=== PATIENT | male | born 1940 | race Caucasian/White ===

== ENCOUNTER 2021-07-02 00:35 | Day surgery (SDC) | payer OTHER, SELFPAY ==
[2021-06-17 14:37] VITALS: BMI 31.8
--- NOTE | 2021-07-01 15:26 | PM.HPGS ---
History of Present Illness History of Present Illness Consent: Risks, benefits, and alternatives have been discussed and questions answered. Patient agrees to proceed with procedure. Chief complaint: occult gi bleed: JOSE Narrative: Ghulam Newsome is a 81 year old male Was been found to be anemic. Hemoglobin was 14.1 last year, and now it is 12.9. Review of Systems Review of Systems: All systems reviewed & are unremarkable except as noted in HPI and below PMFSH Past Medical History Medical History BPH loc w/o ur obs/LUTS Chronic kidney disease, stage 3 (moderate) Depression Essential (primary) hypertension Hypertension Male erectile dysfunction, unspecified MCI (mild cognitive impairment) with memory loss Mixed hyperlipidemia Obstructive sleep apnea Peripheral polyneuropathy Restless legs syndrome Family History Family History Father Acute myocardial infarction Mother Acute myocardial infarction Other Diabetes mellitus Social History Social History Smoking packs per day: 1 Smoking cigarettes per day: 20.0 Years smoked: 30 Smoking pack-years: 30.00 Smoking status: Former smoker Tobacco type: cigarettes, pipe and cigars Second hand tobacco smoke exposure: No Smoking end date: 02/15/84 Alcohol intake: current Drinks per week: 2 Alcohol use details: 4 drinks per month Substance use: never Substance use type: does not use Living arrangements: with family Gender identity (if verbalized by the patient): Male Spiritual care concerns: No Agree to blood products: Yes Meds Home Medications and Allergies Home Medications Medication Instructions Recorded Confirmed Type aspirin 81 mg tablet,delayed 81 mg PO DAILY #1 tablet 01/03/19 07/02/21 Rx release xshxarsfgwcr-epecfzdb-nhmdis tablet 1 tablet PO DAILY 07/15/20 07/02/21 History ferrous sulfate 325 mg (65 mg 325 mg PO DAILY #90 tablet 06/15/21 07/02/21 Rx iron) tablet omeprazole 40 mg capsule,delayed 40 mg PO DAILY #90 cap 06/15/21 07/02/21 Rx release donepezil 10 mg PO DAILY 06/17/21 07/02/21 History irbesartan 75 mg PO DAILY 06/17/21 07/02/21 History sertraline 50 mg PO DAILY 06/17/21 07/02/21 History tamsulosin 0.4 mg PO DAILY 06/17/21 07/02/21 History Allergies Allergy/AdvReac Type Severity Reaction Status Date / Time No Known Allergies Allergy Verified 07/02/21 11:05 Exam Const: General: alert Orientation/consciousness: patient oriented x3 Resp: Auscultation: clear to auscultation bilaterally Cardio: Rhythm: regular rhythm GI: GI Palp: Yes Soft to palpation and No Tenderness to palpation present (GI) Neuro: General: patient oriented x3 Assessment and Plan Assessment and plan (1) Anemia: Code(s): D64.9 - Anemia, unspecified Status: Acute Assessment and Plan: Colonoscopy with possible biopsy or polypectomy or cautery or injection of substances. EGD with possible biopsy or dilatation or cautery.
--- NOTE | 2021-07-02 09:01 | WPDANESEPPF ---
Anes - Initial Pre Proc Eval Procedure: Operation Date: 07/02/21 12:30 Proposed Procedures p Esophagogastroduodenoscopy & Colonoscopy - Herb Ellis MD Date/Time: 07/02/21 09:01 Surgeon: Herb Ellis MD Pre Op Diagnosis: occult gi bleed: JOSE Patient Data Age: 81 Gender: M Height: 1.75 m Weight: 97.7 kg Allergies Allergy/AdvReac Type Severity Reaction Status Date / Time No Known Allergies Allergy Verified 07/02/21 11:05 Home Medications Medication Instructions Recorded Confirmed Type aspirin 81 mg tablet,delayed 81 mg PO DAILY #1 tablet 01/03/19 07/02/21 Rx release pmvxtglxknie-cfripiey-mtcyxp tablet 1 tablet PO DAILY 07/15/20 07/02/21 History ferrous sulfate 325 mg (65 mg 325 mg PO DAILY #90 tablet 06/15/21 07/02/21 Rx iron) tablet omeprazole 40 mg capsule,delayed 40 mg PO DAILY #90 cap 06/15/21 07/02/21 Rx release donepezil 10 mg PO DAILY 06/17/21 07/02/21 History irbesartan 75 mg PO DAILY 06/17/21 07/02/21 History sertraline 50 mg PO DAILY 06/17/21 07/02/21 History tamsulosin 0.4 mg PO DAILY 06/17/21 07/02/21 History Patient hx anesthesia problems: none Family hx anesthesia problems: none Results Review: All pre-operative results and documents have been reviewed as part of the pre-operative evaluation. [facility] Past Medical History Medical History BPH loc w/o ur obs/LUTS Chronic kidney disease, stage 3 (moderate) Depression Essential (primary) hypertension Hypertension Male erectile dysfunction, unspecified MCI (mild cognitive impairment) with memory loss Mixed hyperlipidemia Obstructive sleep apnea Peripheral polyneuropathy Restless legs syndrome Family History Family History Father Acute myocardial infarction Mother Acute myocardial infarction Other Diabetes mellitus Social History Social History Smoking packs per day: 1 Smoking cigarettes per day: 20.0 Years smoked: 30 Smoking pack-years: 30.00 Smoking status: Former smoker Tobacco type: cigarettes, pipe and cigars Second hand tobacco smoke exposure: No Smoking end date: 02/15/84 Alcohol intake: current Drinks per week: 2 Alcohol use details: 4 drinks per month Substance use: never Substance use type: does not use Living arrangements: with family Gender identity (if verbalized by the patient): Male Spiritual care concerns: No Agree to blood products: Yes Anes - Eval Final PreProcedure Day of Procedure 07/02/21 09:01 Patient weight: obese Heart: regular rate and rhythm Lungs: clear to auscultation and normal air movement Airway: Mallampati scale class II Neurological: alert and oriented Last oral intake: >/= 8 hours ASA classification: III Emergent: no Anesthetic plan: proceed Anesthesia type and monitoring: general GIVS Results Review: All pre-operative results and documents have been reviewed as part of the pre-operative evaluation. Informed Consent: The patient's anesthetic plan and its attendant risks and benefits were discussed with the patient/family/POA. Questions were solicited and answers provided to the satisfaction of the patient/family/POA.
[2021-07-02 10:55] VITALS: BP 172/72; PULSE 67; RESP 18; TEMP 36.4; O2SAT 99; BMI 29.0
[2021-07-02] MEDS: LACTATED RINGERS 1,000 ML 150 ML IV CONT (11:23)
--- NOTE | 2021-07-02 12:54 | SUR.OPER ---
EGD start:1227 end 1234 Colonoscopy start 1242 end 1253
[2021-07-02 12:56] VITALS: BP 97/56; PULSE 56; RESP 18; O2SAT 96
[2021-07-02 13:06] VITALS: BP 108/59; PULSE 52; RESP 18; O2SAT 96
[2021-07-02 13:16] VITALS: BP 123/82; PULSE 68; RESP 20; O2SAT 100
== END 2021-07-02 13:36 | disposition home or self-care (01) ==
PROVIDERS: PCP Family Medicine; Visit Provider Internal Medicine Gastroenterology
PROC: 0DJ08ZZ Inspection of Upper Intestinal Tract, Via Natural or Artificial Opening Endoscopic (ICD-10-PCS; CPT 43235; principal; 2021-07-02 12:30)
DX: Z12.11 Encounter for screening for malignant neoplasm of colon (principal); K57.30 Diverticulosis of large intestine without perforation or abscess without bleeding; D64.9 Anemia, unspecified; K44.9 Diaphragmatic hernia without obstruction or gangrene; K31.819 Angiodysplasia of stomach and duodenum without bleeding; I12.9 Hypertensive chronic kidney disease with stage 1 through stage 4 chronic kidney disease, or unspecified chronic kidney disease; N18.30 Chronic kidney disease, stage 3 unspecified; E78.2 Mixed hyperlipidemia; G47.33 Obstructive sleep apnea (adult) (pediatric); G25.81 Restless legs syndrome; N40.1 Benign prostatic hyperplasia with lower urinary tract symptoms; F32.9 Major depressive disorder, single episode, unspecified; G31.84 Mild cognitive impairment of uncertain or unknown etiology; Z79.82 Long term (current) use of aspirin; Z87.891 Personal history of nicotine dependence; E66.9 Obesity, unspecified; Z68.29 Body mass index [BMI] 29.0-29.9, adult
CPT/HCPCS: 43239; 43270; G0121; 87081; J2001; J2704; J7120

== ENCOUNTER 2022-06-08 11:42 | Outpatient (CLI) | payer OTHER, SELFPAY ==
--- NOTE | ~2022-06-08 | XR_ITS ---
EXAM: XR hand BI arthritis min 3V DATE: 06/08/2022 12:11 HISTORY: hand pain . COMPARISON: None available. FINDINGS: Normal mineralization. No fracture or dislocation. No lytic or blastic lesion. Scattered a rthritic changes typical of osteoarthritis present in the bilateral thumb and finger interphalangeal joints, bilateral first and second PIP joints, and the bilateral trapeziometacarpal joints. Changes a re most severe in the bilateral trapeziometacarpal joints and bilateral first and second PIP joints. No erosion or periosteal change. Soft tissues within normal limits. IMPRESSION: Polyarticular osteoarthritis of the hands. Reviewed, dictated and finalized at location K.
--- NOTE | ~2022-06-08 | XR_ITS ---
EXAMINATION: XR lumbar spine min 4V DATE: 06/08/2022 12:11 INDICATION: Low back pain TECHNIQUE: Anteroposterior, lateral, and bilateral oblique views of the lumbar spine, and cone-down l ateral view of the lumbosacral junction were obtained. COMPARISON: 12/10/2018 FINDINGS: There is severe loss of intervertebral disc space height at L5-S1. There is mild loss of in tervertebral disc space height at L2-3, L3-4, and L4-5. There are 4 mm of unchanged anterolisthesis o f L4 on L5. Small degenerative osteophytes project from the anterior endplates of multiple vertebral bodies. No lumbar spine fracture is identified. There is moderate facet joint osteoarthritis of the l ower lumbar spine. Calcified atherosclerosis is noted. A moderate volume of colonic stool is present. IMPRESSION: 1. Mild to moderate lumbar spondylosis without acute findings or significant interval change. Reviewed, dictated and finalized at location L. IMPRESSION: 1. Mild to moderate lumbar spondylosis without acute findings or significant in terval change.
[2022-06-08 12:51] LABS: Hemoglobin A1C 5.5 % (<5.7)
[2022-06-08 22:29] LABS: Complement C3 114 mg/dL (88-165)
[2022-06-11 11:49] LABS: SM Antibody <1.0; SM/RNP Antibody <1.0
[2022-06-15 10:40] LABS: ANCA Screen Negative (Negative)
== END 2022-06-08 11:43 | disposition home or self-care (01) ==
PROVIDERS: PCP Family Medicine; Visit Provider Internal Medicine
DX: M19.042 Primary osteoarthritis, left hand (principal); M19.041 Primary osteoarthritis, right hand; M47.816 Spondylosis without myelopathy or radiculopathy, lumbar region; R20.2 Paresthesia of skin; R76.8 Other specified abnormal immunological findings in serum; R20.9 Unspecified disturbances of skin sensation
CPT/HCPCS: 36415; 72110; 73130; 83036; 86036; 86160; 86225; 86235

== ENCOUNTER 2022-06-10 08:18 | Outpatient (CLI) | payer OTHER, SELFPAY ==
--- NOTE | 2022-06-10 11:00 | NEURO_ITS ---
Impression: Patient reports a history of lower extremity tingling and sensation of coldness. 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 # Needle/EMG exam revealed chronic neurogenic changes in left EDB. # Clinical correlation recommended. Nerve Conduction Studies Anti Sensory Summary Table Stim Site NR Peak (ms) P-T Amp (?V) Site1 Site2 Delta-P (ms) Dist (cm) Dex (m/s) Left Sup Fibular Anti Sensory (Ant Lat Mall) 14 cm 3.7 22.3 14 cm Ant Lat Mall 3.7 16.0 43 Right Sup Fibular Anti Sensory (Ant Lat Mall) 14 cm 4.0 5.3 14 cm Ant Lat Mall 4.0 16.0 40 Left Sural Anti Sensory (Lat Mall) Calf 3.6 18.2 Calf Lat Mall 3.6 16.0 44 Right Sural Anti Sensory (Lat Mall) Calf 3.9 4.5 Calf Lat Mall 3.9 16.0 41 Motor Summary Table Stim Site NR Onset (ms) O-P Amp (mV) Site1 Site2 Delta-0 (ms) Dist (cm) Dex (m/s) Left Peroneal Motor (Vastus Med) Ankle 4.0 1.4 Popit Ankle 9.2 45.0 49 Popit 13.2 1.4 B Fib Ankle 7.3 32.0 44 B Fib 11.3 1.7 Right Peroneal Motor (Vastus Med) Ankle 4.0 1.7 Popit Ankle 9.3 45.0 48 Popit 13.3 2.2 B Fib Ankle 6.9 32.0 46 B Fib 10.9 1.7 Left Tibial Motor (Abd Maloney Brev) Ankle 4.1 8.4 Knee Ankle 9.7 45.0 46 Knee 13.8 5.8 Right Tibial Motor (Abd Maloney Brev) Ankle 4.3 7.1 Knee Ankle 9.5 42.0 44 Knee 13.8 4.5 F Wave Studies NR F-Lat (ms) L-R F-Lat (ms) Left Peroneal (Mrkrs) (EDB) 53.31 0.62 Right Peroneal (Mrkrs) (EDB) 53.93 0.62 Left Tibial (Mrkrs) (Abd Hallucis) 53.15 0.11 Right Tibial (Mrkrs) (Abd Hallucis) 53.26 0.11 EMG Side Muscle Nerve Root Ins Act Fibs Amp Dur Recrt Comment Right AntTibialis Dp Br Fibular L4-5 Nml Nml Nml Nml Nml Right Gastroc Tibial S1-2 Nml Nml Nml Nml Nml Right Fibularis Long Sup Br Fibular L5-S1 Nml Nml Nml Nml Nml Right Flex Dig Long Tibial L5-S2 Nml Nml Nml Nml Nml Right Ext Dig Brev Dp Br Fibular L5, S1 Nml Nml Nml Nml Nml Left AntTibialis Dp Br Fibular L4-5 Nml Nml Nml Nml Nml Left Gastroc Tibial S1-2 Nml Nml Nml Nml Nml Left Fibularis Long Sup Br Fibular L5-S1 Nml Nml Nml Nml Nml Left Flex Dig Long Tibial L5-S2 Nml Nml Nml Nml Nml Left Ext Dig Brev Dp Br Fibular L5, S1 Nml Nml Nml Nml Reduced MTDD
== END 2022-06-10 08:19 | disposition home or self-care (01) ==
LOC: ANHNEURO 08:20
PROVIDERS: PCP Family Medicine; Visit Provider Student in an Organized Health Care Education/Training Program
DX: G62.9 Polyneuropathy, unspecified (principal)
CPT/HCPCS: 95886; 95910

== ENCOUNTER 2022-12-01 10:45 | Outpatient (CLI) | payer OTHER, SELFPAY ==
--- NOTE | ~2022-12-01 | US_ITS ---
EXAMINATION: US carotid duplex BI DATE: 12/01/2022 13:37 INDICATION: Carotid artery stenosis and occlusion TECHNIQUE: Grayscale, color Doppler, and pulsed Doppler images of the cervical carotid arteries were obtained. The degree of vessel stenosis is placed in one of the following categories: normal, <50%, 5 0-69%, >=70% but less than near-occlusion, near-occlusion, or total occlusion. Note that percent sten osis relative to normal distal artery lumen diameter is indirectly measured from velocity measurement s as described by Antonio, et al. Radiology 2003; 229:340-346. COMPARISON: None. FINDINGS: RIGHT: The right common carotid artery (CCA) peak systolic velocity (PSV) is 105 cm/s. The right internal ca rotid artery (ICA) PSV is 109 cm/s. The right ICA end-diastolic velocity (EDV) is 25 cm/s. The right ICA/CCA PSV ratio is 1.0. Grayscale and color Doppler images yield an estimate of <50% diameter reduc tion from plaque in the ICA. The external carotid artery (ECA) PSV is 99 cm/s. There is antegrade erick w in the right vertebral artery. LEFT: The left CCA PSV is 78 cm/s with atypical high resistance waveform resulting from complete occlusion of the left internal carotid artery. The ECA PSV is 98 cm/s. There is antegrade flow in the left vert ebral artery. IMPRESSION: 1. <50% stenosis in the right internal carotid artery. 2. Complete occlusion of the left internal carotid artery. 3. Cardiac arrhythmia is present. Correlate with EKG. Reviewed, dictated and finalized at location A.
== END 2022-12-01 10:46 | disposition home or self-care (01) ==
PROVIDERS: PCP Family Medicine; Visit Provider Family Medicine
DX: I65.23 Occlusion and stenosis of bilateral carotid arteries (principal)
CPT/HCPCS: 93880

== ENCOUNTER 2024-01-11 10:45 | Outpatient (RCR) | payer OTHER, SELFPAY ==
[2023-12-21 09:15] VITALS: BP_SYST 130
--- NOTE | 2023-12-22 17:41 | PTOPEVAL1 ---
Assessment and note entered by Regina Moscoso, PT Evaluation Information Assessment Status Evaluation Diagnosis M54.2, M54.10 ICD-10 Condition Codes (PT) Cervicalgia M54.2,M25.512,Weakness R53.1 Onset approx 6 months ago Subjective Information Pt reports [place] and was trying to climb down a [place], he was holding on to big tree roots when he lost footing and R foot slipped, swung his whole body and pulled the L shoulder. Since then he was having increasing pain to L shoulder. He states received Cortisone shot sometime in November and that helped a little bit, however 2 weeks after receiving a shot, he fell on a hole while walking in the field and felt pain that shoot up from his leg upto his shoulders and neck area. Now he is experiencing pain, and unable to move arm overhead. Reaching for objects in cupboards, lifting from the ground and reaching out to the side increases the pain. He states he takes Aleve and just tries to rest it for pain relief. Reported Pain Level Pain Score 4: Self Report Additional Pain Score Comments Pain is worst with moving arm out Assessment PT Clinical Summary Pt is an 83 yo male who presents to therapy with increased L shoulder pain aggravated with overhead movement. Demos significant reduction in cervical and L shoulder active ROM, reduced strength and stability impacting performance of ADLs and IADLs. X-rays showed Moderate degenerative spondylosis of the cervical spine, however, No acute osseous abnormality L shoulder. Test and Measures indicate possible biceps muscle pathology or injury, rotator cuff injuries considering mode of injury and presenting symptoms. He will benefit from skilled PT to manage pain, address deficits and regain functional mobility to perform daily tasks without pain and discomfort. Plan of Care Interventions Check Out for Orthotic/Pr,Electrical Stimulation, Hot Pack/Cold Pack,Manual Therapy,Neuro Re- education,Patient/Caregiver Education,Therapeutic Activities,Therapeutic Exercise,Ultrasound,Other Other Interventions IASTM, Taping PT Services Indicated Yes Treatment Frequency and 1-2x/wk x 12 visits Duration These treatments will address the objective and functional deficits as defined above. The patient will be advanced safely and appropriately in order for the patient to progress towards his/her prior level of function. Additional exercises will be introduced and as well as a comprehensive home exercise program upon discharge, if needed, ?to ensure carryover of functional gains achieved in the clinic. This treatment plan has been reviewed and agreement upon by the patient.
--- NOTE | 2024-01-15 16:15 | PTOPDC ---
Assessment and note entered by Regina Moscoso, PT Discharge Information Assessment Status Discharge Diagnosis M54.2, M54.10 ICD-10 Condition Codes (PT) Cervicalgia M54.2,M25.512,Weakness R53.1 Onset approx 6 months ago Subjective Information Pt reports he does not feel any excruciating pain at all this time, but continue to feel tightness and achy with rolling shoulder up and touch back of her head. Reports is compliant with HEPs. Assessment PT Clinical Summary Pt received only a total of 4 PT treatment sessions, demos significant improvement in ROM and reduction in pain. Pt wants to be DC'd from therapy due to wanting to perform exercises indep at home considering his pain levels are not severe anymore at this time. Pt educated on HEPs and safe progression to reduce further injuries. Skilled PT discontinued per patient's request. Plan of Care PT Services Indicated No
== END 2024-01-23 15:38 | disposition home or self-care (01) ==
LOC: ANHHIPT 10:45
PROVIDERS: PCP Physician Assistant Medical; Visit Provider Physician Assistant Medical
DX: M54.2 Cervicalgia (principal); M54.10 Radiculopathy, site unspecified; M25.512 Pain in left shoulder; R53.1 Weakness
CPT/HCPCS: 97014; 97035; 97110; 97140; 97161; 97750; G0283

== ENCOUNTER 2024-04-03 09:12 | Outpatient (CLI) | payer OTHER, SELFPAY ==
--- OUTSIDE RECORDS SUMMARY | 2024-04-03 09:19 | XMS_ITS | Encounter Summary ---
Author Organization [facility] Address [address] [place] [id number] Care Team Providers Care Hogshead Hooper Name Role Phone Sumaya Bush PA-C Primary Care Provider [phone]- [phone] Encounter Details Date Type Department Care Team (Late st Contact Info) Description 11/22/2023 Abstract [facility], [facility] [address] [place], [place] [id number] Favian Wright MA Social History Tobacco Use Types Packs/Day Years Used Date Smoking Tobacco: Former Cigarettes Smokeless Tobacco: Never Alcohol Use Standard Drinks/Week Comments Yes 0 (1 standard drink = 0.6 oz pur e alcohol) rare Sex and Gender Information Value Date Recorded Sex Assigned at Male 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 [facility] [address] [place] [address] 11/19/2024 10:00 AM CDT Appointment [facility] [address] [place], [place] [phone] Agustin Torres MD [facility] [address] [address] documented as of this encounter Procedures Procedure Name Priority Date/Time Associated Diagnosis Comments HEPATIC FUNCTION PANEL Routine 05/20/2023 CBC (OUTSIDE LAB) Routine 05/10/2023 COMPREHENSIVE METABOLIC PANEL Routine 05/10/2023 LIPID PANEL Routine 05/10/2023 HEMOGLOBIN, GLYCOSYLATED Routine 05/10/2023 documented in this encounter Results * HEPATIC FUNCTION PANEL (05/20/2023) ALBUMIN S/P/B 3.8 3.5 - 5.0 ALKALINE PHOSPHATASE S/P/B 802 ALT 86 AST 97 BILIRUBIN DIRECT S/P/B 0.2 BILIRUBIN TOTAL S/P/B 0.7 TOTAL PROTEIN S/P/B 6.9 GLOBULIN 3.1 05/20/2023 us Default History Genericprovider LABORATORY Final Result * COMPREHENSIVE METABOLIC PANEL (05/10/2023) Pathologist [facility] SODIUM S/P/B 138 POTASSIUM S/P/B 4.5 CO2 30 CHLORIDE S/P/B 103 GLUCOSE 97 mg/dL CALCIUM S/P/B 9.3 BUN 25 CREATININE S/P/B 1.22 0.7 - 1.3 GFR ESTIMATE 58 ALKALINE PHOSPHATASE S/P/B 979 ALT 86 AST 78 BILIRUBIN TOTAL S/P/B 0.9 ALBUMIN S/P/B 3.7 3.5 - 5.0 TOTAL PROTEIN S/P/B 7.3 GLOBULIN 3.6 05/10/2023 us Default History Genericprovider LABORATORY Final Result * CBC (OUTSIDE LAB) (05/10/2023) WBC 9.7 HGB 12.1 HCT 35.4 PLT 345 05/10/2023 us Default History Genericprovider LAB-OUTSIDE/ABST RACTED Final Result * HEMOGLOBIN, GLYCOSYLATED (05/10/2023) Pathologist [facility] HGB A1C 5.7 % 05/10/2023 us Default History Genericprovider LABORATORY Final Result * LIPID PANEL (05/10/2023) Pathologist [facility] CHOLESTEROL 181 HDL 82 TRIGLYCERIDES 57 LDL (CALCULATED) 86 05/10/2023 us Default History Genericprovider LABORATORY Final Result documented in this encounter Visit Diagnoses Not on filedocumented in this encounter Care Teams Hogshead Hooper Relationship Specialty Start Date End Date Sumaya Bush PA-C [address] [place] [address] [address] [place] [address] PCP - General PHYSICIAN AUTO PARKER 11/22/23 documented as of this encounter
--- OUTSIDE RECORDS SUMMARY | 2024-04-03 09:19 | XMS_ITS | Clinical Summary ---
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
--- OUTSIDE RECORDS SUMMARY | 2024-04-03 09:19 | XMS_ITS | Clinical Summary ---
Author Organization [facility] Address [facility] [place] [address] Care Team Providers Care Nutrition Consultant Name Role Phone Sumaya Brizuela PA-C Primary Care Provider [phone] Allergies No known active allergies Medications irbesartan (AVAPRO) 75 MG tablet Take 1 tablet (75 mg total) by mouth daily. 09/12/2023 Active omeprazole (PRILOSEC) 40 MG capsule Take 1 capsule (40 mg total) by mouth daily. 07/23/2023 Active tamsulosin (FLOMAX) 0.4 MG Cap Take 1 capsule (0.4 mg total) by mouth daily. 09/16/2023 Active aspirin EC (ECOTRIN) 81 MG tablet Take 1 tablet (81 mg total) by mouth daily. Active Multiple Vitamin (MULTIVITAMIN ADULT OR) Take 1 tablet by mouth daily. Active B Complex Vitamins (VITAMIN-B COMPLEX OR) Take 1 tablet by mouth daily. Active atorvastatin (LIPITOR) 80 MG tablet Take 1 tablet (80 mg total) by mouth nightly at bedtime. Active donepezil (ARICEPT) 10 MG Tab Take 1 tablet (10 mg total) by mouth daily. 11/17/2023 Active Active Problems Problem Noted Date Diagnosed Date Impingement syndrome of left shoulder 11/21/2023 Assessment & Plan (11/21/2023 4:28 PM CDT): The rotator cuff tear on his right shoulder was treated nonoperatively. He's not wanting to proceed with any surgery. We went over the risks and benefits as well as the alternatives. A steroid was injected. Status post fall 11/21/2023 History of rotator cuff tear 11/21/2023 Heart murmur 11/18/2023 Assessment & Plan (03/02/2024 9:49 AM CRIB CLERK): He has a history of heart murmur as a child. Recent echocardiogram with an ejection fraction of 55 to 60% and no significant valvular abnormalities. Assessment & Plan (11/18/2023 2:39 PM CDT): Recommend checking an echocardiogram. Essential (primary) hypertension Assessment & Plan (03/02/2024 9:47 AM CRIB CLERK): His blood pressure is well-controlled in office today at 120/70 mmHg. Continue irbesartan Assessment & Plan (11/18/2023 2:38 PM CDT): His blood pressure is well-controlled. Continue irbesartan. Left carotid artery occlusion Assessment & Plan (03/02/2024 9:46 AM CRIB CLERK): CTA of head and neck showing occlusion of the left internal carotid artery from its origin through proximal supraclinoid ICA segment. Recently completed bilateral carotid artery duplex showing less than 50% stenosis of the right carotid artery and occlusion of the left carotid artery. He followed with Dr. Torres who recommended continuing current medical management and repeating bilateral carotid artery duplex in 1 year. Assessment & Plan (11/18/2023 2:38 PM CDT): Recommend CTA of neck to further evaluate left carotid artery occlusion and right internal carotid artery disease. He already has an appointment set up for vascular surgery. Dyslipidemia Assessment & Plan (03/02/2024 9:48 AM CRIB CLERK): He continues on high intensity statin therapy with atorvastatin 80 mg. Assessment & Plan (11/18/2023 2:38 PM CDT): Given that he has carotid artery disease, I would recommend continuing aspirin and atorvastatin. Encounters Date Type Department Care Team Description 03/02/2024 9:30 AM CRIB CLERK Office Visit [facility] [address] [place] [address] Ivan Rodrigues MD Lanter, Megan N, PA Carotid Stenosis; Murmur; Lipids 03/02/2024 Travel 02/29/2024 9:23 AM CRIB CLERK - 02/29/2024 11:59 PM CRIB CLERK Hospital Encounter [facility] [place] [address] [place] [address] Sumaya Brizuela, PA-C Discharge Disposition: Home or Self Care (Routine Discharge) 02/29/2024 Travel from Last 3 Months Immunizations Name Administration Dates Next Due Fluad influenza vaccine, Kingsley drivalent (aIIV4), Inactivated, adjuvanted, preservative free, 0.5 mL,IM use 10/28/2017 Fluzone High Dose (IIV, triv alent, 0.5mL) 11/02/2018,12/01/2015,11/12/2014 Influenza (Generic) 11/10/2016,11/24/2012,2010 Influenza Adult (Generic) 11/04/2022,03/2021,12/02/2020,2019 Pneumococcal (Pneumovax 23) 02/13/2020 Zoster (Zostavax) [address] Unt/0.65Ml 01/18/2012 Family History Medical History Relation Comments Heart Attack Brother [place] Father [place] Mother Relation Status Comments Brother (Age 76) Father (Age 80) Mother (Age 78) Social History Tobacco Use Types Packs/Day Years Used Date Smoking Tobacco: Former Cigarettes Smokeless Tobacco: Never Tobacco Cessation:Counseling Given: No Alcohol Use Standard Drinks/Week Comments Yes 0 (1 standard drink = 0.6 oz pur e alcohol) rare Sex and Gender Information Value Date Recorded Sex Assigned at Male 02/29/2024 9:18 AM CRIB CLERK Legal Sex Male 7:58 PM CDT Gender Identity Not on file Sexual Orientation Not on file Last Filed Vital Signs Vital Sign Reading Time Taken Comments Blood Pressure 120/70 03/02/2024 9:12 AM CRIB CLERK Pulse 70 03/02/2024 9:12 AM CRIB CLERK Temperature 36.7 C (98.1 F) 11/21/2023 2:47 PM CDT Respiratory Rate - - Oxygen Saturation 98% 11/21/2023 2:47 PM CDT Inhaled Oxygen Concentration - - Weight 88.9 kg (196 lb) 03/02/2024 9:12 AM CRIB CLERK Height 175.3 cm (5' 9 ) 03/02/2024 9:12 AM CRIB CLERK Body Mass Index 28.94 03/02/2024 9:12 AM CRIB CLERK Plan of Treatment Upcoming Encounters Date Type Department Care Team (Late st Contact Info) Description 08/31/2024 12:15 PM CDT [facility] [address] [place] [id number] Ivan Rodrigues MD [address] [id number] 11/19/2024 10:00 AM CDT Appointment [facility] Ultrasound [address] [place], [place] [id number] Agustin Torres MD [address] [place] [address] Health Maintenance Due Date Last Done Comments DTaP, Tdap and Td Vaccines (1 - Tdap) 05/10/1959 Annual Medicare Wellness Visit 05/10/2004 Zoster Vaccines (2 of 3) 03/14/2012 01/18/2012 RSV Immunization or 60+ Years (1 - 1-dose 75+ series) 05/10/2014 Pneumococcal Vaccine: 65+ Years (2 of 2 - PCV) 02/12/2021 02/13/2020 COVID-19 Vaccine ( - season) 2023 Influenza Adult (#1) 2023 11/04/2022, 10/16/2021, 12/02/2020, Additional history exists PHQ-2 (Physician [place]) 02/15/2024 Meningococcal B Vaccine Aged Out No l onger eligible based on patient's age to complete this topic Meningococcal Vaccine Aged Out No sam dennis eligible based on patient's age to complete this topic RSV Immunizations Under 20 Months Aged Out No longer eligible based on patient's age to complete this topic Procedures Procedure Name Priority Date/Time Associated Diagnosis Comments MRI LUMB SPINE WO CON Routine 02/29/2024 10:26 AM CRIB CLERK Polyneuropathy, unspecified Spondylosis without myelopathy or radiculopathy, lumbar region from Last 3 Months Results * MRI LUMB SPINE WO CON (02/29/2024 10:26 AM CRIB CLERK) Anatomical Region Laterality Modality Spine Magnetic Resonan ce 03/02/2024 9:37 AM CRIB CLERK Impressions 03/02/2024 9:40 AM CRIB CLERK IMPRESSION: 1. Multilevel degenerative changes in the lumbar spine contributing to varying degrees of spinal canal and foraminal stenosis, as detailed above. Ordered By: SUMAYA BRIZUELA Interpreted By: Neel Gracia MD, 03/02/2024 9:37 AM Narrative 03/02/2024 9:40 AM CRIB CLERK [facility] [address] [place] [address] DATE: 02/29/2024 9:59 AM INDICATION: Polyneuropathy. Spondylosis. Numbness and tingling in bilateral feet. EXAMINATION: MRI lumbar spine without contrast. TECHNIQUE: Multiplanar and multisequence MRI images of the lumbar spine were obtained without contrast. COMPARISON: None FINDINGS: There are 5 lumbar type vertebral bodies designated as L1 through L5; using this numbering system, the conus medullaris terminates at L1-L2 and appears unremarkable. There is grade 1 anterolisthesis of L4 on L5. Otherwise the lumbar vertebral alignment, vertebral body heights, and facet alignment are maintained. Chronic appearing superior endplate compression deformity at T12. Scattered Schmorl's nodes noted along the endplates. Multilevel degenerative changes are evident in the lumbar spine with disc degeneration, endplate osteophytes, ligamentum flavum thickening, and facet hypertrophy noted. Multilevel disc desiccation. Greatest loss of disc height at L5-S1. Imaged portions of the soft tissues reveal no definite acute findings. Colonic diverticulosis. T12-L1: Ligamentous and facet hypertrophy. No significant canal or foraminal narrowing. L1-L2: Tiny central protrusion. Ligamentous and facet hypertrophy. No canal or foraminal narrowing. L2-L3: Mild disc bulge with extension into the foramina. Endplate osteophytes. Ligamentous and facet hypertrophy. No significant canal stenosis. Mild to moderate foraminal narrowing. L3-L4: Disc bulge with extension into the foramina. Endplate osteophytes. Ligamentous and facet hypertrophy. Minimal canal stenosis. Moderate left and mild to moderate right foraminal narrowing. L4-L5: Anterolisthesis and disc uncovering. Disc bulge with extension into the foramina. Endplate osteophytes. Prominent ligamentum flavum thickening. Prominent facet hypertrophy. Moderate canal stenosis. Mild to moderate foraminal narrowing. L5-S1: Disc and posterior/marginal endplate osteophyte complex. Facet hypertrophy. No significant canal stenosis. Moderate foraminal narrowing. Procedure Note Neel Gracia MD - 03/02/2024 [facility] [address] [place] [address] DATE: 02/29/2024 9:59 AM INDICATION: Polyneuropathy. Spondylosis. Numbness and tingling inbilateral feet. EXAMINATION: MRI lumbar spine without contrast. TECHNIQUE: Multiplanar and multisequence MRI images of the lumbar spine were obtainedwithout contrast. COMPARISON: None FINDINGS: There are 5 lumbar type vertebral bodies designated as L1 through L5;using this numbering system, the conus medullaris terminates at L1-L2 andappears unremarkable. There is grade 1 anterolisthesis of L4 on L5. Otherwise the lumbarvertebral alignment, vertebral body heights, and facet alignment aremaintained. Chronic appearing superior endplate compression deformity atT12. Scattered Schmorl's nodes noted along the endplates. Multileveldegenerative changes are evident in the lumbar spine with discdegeneration, endplate osteophytes, ligamentum flavum thickening, andfacet hypertrophy noted. Multilevel disc desiccation. Greatest loss ofdisc height at L5-S1. Imaged portions of the soft tissues reveal no definite acute findings.Colonic diverticulosis. T12-L1: Ligamentous and facet hypertrophy. No significant canal orforaminal narrowing. L1-L2: Tiny central protrusion. Ligamentous and facet hypertrophy. Nocanal or foraminal narrowing. L2-L3: Mild disc bulge with extension into the foramina. Endplateosteophytes. Ligamentous and facet hypertrophy. No significant canalstenosis. Mild to moderate foraminal narrowing. L3-L4: Disc bulge with extension into the foramina. Endplate osteophytes.Ligamentous and facet hypertrophy. Minimal canal stenosis. Moderate leftand mild to moderate right foraminal narrowing. L4-L5: Anterolisthesis and disc uncovering. Disc bulge with extension intothe foramina. Endplate osteophytes. Prominent ligamentum flavumthickening. Prominent facet hypertrophy. Moderate canal stenosis. Mild tomoderate foraminal narrowing. L5-S1: Disc and posterior/marginal endplate osteophyte complex. Facethypertrophy. No significant canal stenosis. Moderate foraminalnarrowing. IMPRESSION: 1. Multilevel degenerative changes in the lumbar spine contributing tovarying degrees of spinal canal and foraminal stenosis, as detailedabove. Ordered By: SUMAYA BRIZUELA Interpreted By: Neel Gracia MD, 03/02/2024 9:37 AM Sumaya Brizuela PA-C MRI Final Resu lt from Last 3 Months Insurance [employer] Care Teams Nutrition Consultant Relationship Specialty Start Date End Date Sumaya Brizuela PA-C [address] [place] [address] [address] [place] [address] PCP - General PHYSICIAN WARDROBE SPECIALIST 11/22/23
--- OUTSIDE RECORDS SUMMARY | 2024-04-03 09:20 | XMS_ITS | Clinical Summary ---
Author Organization [facility] Address [address] [place] [address] Care Team Providers Care Hydraulic Auto Jack Mechanic Name Role Phone Sumaya Bush Primary Care Provider [phone] Allergies No known active allergies Medications atorvastatin (LIPITOR) 80 mg tablet Take 1 tablet (80 mg total) by mouth daily 12/14/2022 Active donepeziL (ARICEPT) 10 mg tablet 12/25/2022 Active gabapentin (NEURONTIN) 100 mg capsule Take 1 capsule (100 mg total) by mouth 3 (three) times a day 10/14/2022 Active gabapentin (NEURONTIN) 300 mg capsule TAKE 1 CAPSULE BY MOUTH 3 TIMES A DAY 11/09/2022 Active omeprazole (PriLOSEC) 40 mg capsule Take by mouth daily 11/01/2022 Active sertraline (ZOLOFT) 100 mg tablet Take 0.5 tablets (50 mg total) by mouth daily 11/09/2022 Active simvastatin (ZOCOR) 10 mg tablet Take 1 tablet (10 mg total) by mouth daily 09/26/2022 Active tamsulosin (FLOMAX) 0.4 mg extended release capsule Take by mouth daily 12/08/2022 Active irbesartan (AVAPRO) 75 mg tablet Take 1 tablet (75 mg total) by mouth nightly Active multivitamin (MULTI-DAY ORAL) Take by mouth Active vitamin B complex capsule Take 1 capsule by mouth daily Active aspirin 81 mg enteric coated tablet Take 1 tablet (81 mg total) by mouth daily Active Active Problems Problem Noted Date Diagnosed Date Bilateral carotid artery stenosis 12/30/2022 Assessment & Plan (02/23/2024 2:21 PM INTEGRATION TECHNICIAN): Impression: Patient has a known occlusion to left internal carotid artery and moderate stenosis to the right internal carotid artery. He remains asymptomatic. Carotid duplex reveals a discrepancy with an velocities compared to carotid duplex performed in September 03, 2023. Plan: Recommended CTA head and neck for further evaluation. Discussed patient and plan of care with Dr. Brandon Nina. Patient reports getting a second opinion regarding his occluded carotid artery with an appointment already made for next Tuesday. Encouraged patient to seek a second opinion and that physician will assume care. Assessment & Plan (08/11/2023 2:03 PM CDT): Impression: Patient has a known left internal carotid artery occlusion. Moderate stenosis is noted to the right internal carotid artery. He remains asymptomatic. Plan: Continue ongoing risk factor modifications. -patient to follow-up in 6 months for re-evaluation with repeat carotid duplex. Assessment & Plan (02/02/2023 11:12 AM INTEGRATION TECHNICIAN): Chronic occlusion of the left internal carotid artery and moderate stenosis to the right ICA. Patient remains asymptomatic. Plan: Follow-up in 6 months for routine surveillance with carotid duplex. Continue statin therapy. Assessment & Plan (12/31/2022 11:28 AM INTEGRATION TECHNICIAN): Outside facility carotid duplex shows possible mild to moderate stenosis of the right internal carotid artery and occlusion of the left internal carotid artery. Patient remains asymptomatic. Plan: Follow-up in the next few weeks with a carotid duplex. Secondary hypertension 12/30/2022 Assessment & Plan (02/23/2024 2:21 PM INTEGRATION TECHNICIAN): Impression: Chronic and stable. Plan: Continue atorvastatin Assessment & Plan (08/11/2023 2:04 PM CDT): Impression: Chronic and stable. Plan: Continue irbesartan Other hyperlipidemia 12/30/2022 Assessment & Plan (02/23/2024 2:21 PM INTEGRATION TECHNICIAN): Impression: Chronic stable. Plan: Continue Lipitor Assessment & Plan (08/11/2023 2:03 PM CDT): Impression: Chronic and stable. Plan: Continue Lipitor Smoking history 12/30/2022 Assessment & Plan (12/31/2022 11:29 AM INTEGRATION TECHNICIAN): Patient with history of tobacco abuse who is a current everyday 1 pack per day smoker. I had a greater than 3 minute discussion with the patient on the importance of smoking cessation and the negative affects on their cardiovascular health. Patient understands importance of cessation. Encounters Date Type Department Care Team Description 02/23/2024 Telephone [facility] Medical [facility] Vascular and Vein Surgery [address] [place] [address] [address] [place] [address] Becka Griggs 02/22/2024 10:15 AM INTEGRATION TECHNICIAN Office Visit [facility] Vascular and Vein Surgery [address] [place] [address] [address] [place] [address] Tamica Roth NP Bilateral carotid artery stenosis (Primary Dx); Other hyperlipidemia; Secondary hypertension 02/22/2024 9:06 AM INTEGRATION TECHNICIAN - 02/22/2024 11:59 PM INTEGRATION TECHNICIAN Hospital Encounter [facility] Medical Office Building [address] [place] [address] [place] [id number] Stenosis of right carotid artery Discharge Disposition: Discharge to home or self care from Last 3 Months Immunizations Immunization Administration Dates Next Due Influenza, Quad, Adjuvantate d, Intramuscular 11/28/2019 Influenza, Quadrivalent, Hig h Dose, Preservative Free, Intrr 11/04/2022,10/16/2021,12/02/2020 Influenza, Trivalent, Adjuva nted, Intramuscular 10/28/2017 Influenza, Trivalent, High D ose, Split, Preservative Free, Intramuscular 11/02/2018,12/01/2015,11/12/2014 Influenza, Trivalent, IM (MDV) 11/10/2016,2012,11/13/2010 Pneumococcal Polysaccharide PPV23 02/13/2020 ZOSTER LIVE 01/18/2012 Medical History Medical History Date Comments Diabetes mellitus (HCC) Family History Medical History Relation Name Comments No Known Problems Brother No Known Problems Father No Known Problems Maternal Grandfather No Known Problems Maternal Grandmother No Known Problems Mother No Known Problems Paternal Grandfather No Known Problems Paternal Grandmother Relation Name Status Comments Brother Father Maternal Grandfather Maternal Grandmother Mother Paternal Grandfather Paternal Grandmother Social History Tobacco Use Types Packs/Day Years Used Date Smoking Tobacco: Former Cigarettes Smokeless Tobacco: Never Tobacco Cessation:Counseling Given: Not Answered Sex and Gender Information Value Date Recorded Sex Assigned at Not on file Legal Sex Male 12:39 PM INTEGRATION TECHNICIAN Gender Identity Not on file Sexual Orientation Not on file Obstetrics History Last Filed Vital Signs Vital Sign Reading Time Taken Comments Blood Pressure 154/64 02/22/2024 9:38 AM INTEGRATION TECHNICIAN Pulse 53 02/22/2024 9:38 AM INTEGRATION TECHNICIAN Temperature - - Respiratory Rate - - Oxygen Saturation - - Inhaled Oxygen Concentration - - Weight 83.9 kg (185 lb) 02/22/2024 9:38 AM INTEGRATION TECHNICIAN Height 175.3 cm (5' 9 ) 02/22/2024 9:38 AM INTEGRATION TECHNICIAN Body Mass Index 27.32 02/22/2024 9:38 AM INTEGRATION TECHNICIAN Plan of Treatment Health Maintenance Due Date Last Done Comments Depression Screening 1940 Fall Risk Assessment 1940 DTaP/Tdap/Td Vaccine (1 - Tdap) 05[birth year]10/1950 Hepatitis B Screening 05[birth year]10/1958 Well Visit 65+ 05/10/2004 Zoster Vaccine (2 of 3) 03/14/2012 01/18/2012 Pneumococcal vaccine 65+ (2 of 2 - PCV) 02/12/2021 02/13/2020 Covid-19 Vaccine (4 - 2023-2 5 season) 2023 02/11/2021, 04/29/2020, 04/10/2020 Influenza Vaccine (#1) 2023 3, 10/16/2021, 12/02/2020, Additional history exists Procedures Procedure Name Priority Date/Time Associated Diagnosis Comments US CAROTIDS DUPLEX BILATERAL Schedule Routine, Read Routine (OP Routine) 02/22/2024 9:39 AM INTEGRATION TECHNICIAN Stenosis of right carotid artery from Last 3 Months Results * US Carotids Duplex Bilateral (02/22/2024 9:39 AM INTEGRATION TECHNICIAN) Anatomical Region Laterality Modality Vascular Bilateral Ultrasound 02/22/2024 Narrative 02/27/2024 7:17 AM INTEGRATION TECHNICIAN [employer] Job ID: [id number] [employer] Document ID: [id number] Dictated date/time: [id number] CAROTID DUPLEX REASON FOR EXAM Carotid stenosis. COMMENTS ON THE RIGHT Peak systolic velocity of CCA of 103, ICA of 82. Smooth heterogenous plaques in proximal ICA. ECA velocity of 102. Antegrade flow noted vertebral velocity of 46. COMMENTS ON THE LEFT Peak systolic velocity of CCA of 72, left ICA is occluded. ECA velocity of 90. Antegrade flow noted vertebral artery velocity of 26. OVERALL IMPRESSION 1. Less than 50% stenosis right internal carotid artery with occlusion of the left internal carotid artery. 2. Antegrade flow noted bilateral vertebral arteries. Job ID/Internal Job ID: [id number] us Tamica Roth TELECOMMUNICATIONS LINESWORKER IMG US PROCEDURES Final R esult from Last 3 Months Insurance Care Teams Hydraulic Auto Jack Mechanic Relationship Specialty Start Date End Date Sumaya Bush PA [address] [place] [address] PCP - General Family Practice 02/22/24
--- OUTSIDE RECORDS SUMMARY | 2024-04-03 09:20 | XMS_ITS | Referral Summary ---
Author Organization [facility] Address [address] [place] [address] Care Team Providers Care Camp Guard Name Role Phone Sumaya Bush Primary Care Provider [phone] Encounters Date Type Department Care Team Description 02/23/2024 Telephone [facility] Vascular [facility] Vein Surgery [address] [place] [phone] Becka Griggs 02/22/2024 10:15 AM HISTORIOGRAPHER Office Visit [facility] Vascular and Vein Surgery [address] [place] [address] [address] [place] [address] Tamica Roth NP Bilateral carotid artery stenosis (Primary Dx); Other hyperlipidemia; Secondary hypertension 02/22/2024 9:06 AM HISTORIOGRAPHER - 02/22/2024 11:59 PM HISTORIOGRAPHER Hospital Encounter [facility] [address] [place] [address] [address] [place] [address] Stenosis of right carotid artery Discharge Disposition: Discharge to home or self care from Last 3 Months Allergies No known active allergies Medications atorvastatin [...] 12/30/2022 Assessment & Plan (02/23/2024 2:21 PM HISTORIOGRAPHER): Impression: Patient has a known occlusion to [...] duplex. Assessment & Plan (02/02/2023 11:12 AM HISTORIOGRAPHER): Chronic occlusion of the left internal carotid artery and moderate stenosis to the right ICA. Patient remains asymptomatic. Plan: Follow-up in 6 months for routine surveillance with carotid duplex. Continue statin therapy. Assessment & Plan (12/31/2022 11:28 AM HISTORIOGRAPHER): Outside facility carotid duplex shows possible mild to moderate stenosis of the right internal carotid artery and occlusion of the left internal carotid artery. Patient remains asymptomatic. Plan: Follow-up in the next few weeks with a carotid duplex. Secondary hypertension 12/30/2022 Assessment & Plan (02/23/2024 2:21 PM HISTORIOGRAPHER): Impression: Chronic and stable. Plan: Continue atorvastatin Assessment & Plan (08/11/2023 2:04 PM CDT): Impression: Chronic and stable. Plan: Continue irbesartan Other hyperlipidemia 12/30/2022 Assessment & Plan (02/23/2024 2:21 PM HISTORIOGRAPHER): Impression: Chronic stable. Plan: Continue Lipitor Assessment & Plan (08/11/2023 2:03 PM CDT): Impression: Chronic and stable. Plan: Continue Lipitor Smoking history 12/30/2022 Assessment & Plan (12/31/2022 11:29 AM HISTORIOGRAPHER): Patient with history of tobacco abuse who is a current everyday 1 pack per day smoker. I had a greater than 3 minute discussion with the patient on the importance of smoking cessation and the negative affects on their cardiovascular health. Patient understands importance of cessation. Immunizations Immunization Administration Dates Next Due Influenza, Quad, Adjuvantate d, Intramuscular 11/28/2019 Influenza, Quadrivalent, Hig h Dose, Preservative Free, Intrr 11/04/2022,10/16/2021,12/02/2020 Influenza, Trivalent, Adjuva nted, Intramuscular 10/28/2017 Influenza, Trivalent, High D ose, Split, Preservative Free, Intramuscular 11/02/2018,12/01/2015,11/12/2014 Influenza, Trivalent, IM (MDV) 11/10/2016,2012,11/13/2010 Pneumococcal Polysaccharide PPV23 02/13/2020 ZOSTER LIVE 01/18/2012 Social History Tobacco Use Types Packs/Day Years Used Date Smoking Tobacco: Former Cigarettes Smokeless Tobacco: Never Tobacco Cessation:Counseling Given: Not Answered Sex and Gender Information Value Date Recorded Sex Assigned at Not on file Legal Sex Male 12:39 PM HISTORIOGRAPHER Gender Identity Not on file Sexual Orientation Not on file Last Filed Vital Signs Vital Sign Reading Time Taken Comments Blood Pressure 154/64 02/22/2024 9:38 AM HISTORIOGRAPHER Pulse 53 02/22/2024 9:38 AM HISTORIOGRAPHER Temperature - - Respiratory Rate - - Oxygen Saturation - - Inhaled Oxygen Concentration - - Weight 83.9 kg (185 lb) 02/22/2024 9:38 AM HISTORIOGRAPHER Height 175.3 cm (5' 9 ) 02/22/2024 9:38 AM HISTORIOGRAPHER Body Mass Index 27.32 02/22/2024 9:38 AM HISTORIOGRAPHER Plan of Treatment Not on file Procedures Procedure Name Priority Date/Time Associated Diagnosis Comments US CAROTIDS DUPLEX BILATERAL Schedule Routine, Read Routine (OP Routine) 02/22/2024 9:39 AM HISTORIOGRAPHER Stenosis of right carotid artery from Last 3 Months Results * US Carotids Duplex Bilateral (02/22/2024 9:39 AM HISTORIOGRAPHER) Anatomical Region Laterality Modality Vascular Bilateral Ultrasound 02/22/2024 Narrative 02/27/2024 7:17 AM HISTORIOGRAPHER [employer] Job ID: [id number] Am[employer]ion Document ID: [id number] Dictated date/time: [id number] CAROTID DUPLEX REASON FOR EXAM Carotid stenosis. [...] bilateral vertebral arteries. Job ID/Internal Job ID: [id number] Tamica Roth RESIDENTIAL CASE MANAGER IMG US PROCEDURES Final R esult from Last [address] [facility] Care Teams Camp Guard Relationship Specialty Start Date End Date Sumaya Bush PA [address] [place] [id number] PCP - General Family Practice 02/22/24
--- OUTSIDE RECORDS SUMMARY | 2024-04-03 09:20 | XMS_ITS | Encounter Summary ---
Author Organization [facility] Address [address] [place] [address] Care Team Providers Care Admission Specialist Name Role Phone Peña Mancuso Primary Care Provider Unavailabl e Encounter Details Date Type Department Care Team (Late st Contact Info) Description 08/31/2003 Outpatient Historical [facility] Support Serv. (Adt Cardiology-[facility]) [address] [place] [phone] Rajinder Mcintosh MD [address] [address] Social History Tobacco Use Types Packs/Day Years Used Date Smoking Tobacco: Never Assessed Sex and Gender Information Value Date Recorded Sex Assigned at Not on file Legal Sex Male 3:56 AM PODIATRY PROFESSOR Gender Identity Not on file Sexual Orientation Not on file documented as of this encounter Plan of Treatment Not on file documented as of this encounter Visit Diagnoses Not on filedocumented in this encounter Care Teams Admission Specialist Relationship Specialty Start Date End Date Peña Mancuso PCP - General 09/05/03 documented as of this encounter
--- OUTSIDE RECORDS SUMMARY | 2024-04-03 09:20 | XMS_ITS | Encounter Summary ---
Author Organization [facility] Address [address] [place] [address] Care Team Providers Care Transfer Knitter Name Role Phone Peña Mancuso Primary Care Provider Unavailabl e Encounter Details Date Type Department Care Team (Latest Contact Info) Description 08/30/2003 Inpatient Historical [facility] PATIENT IN A BED Bogdan Pearce CORON ATHEROSCL SITKA CORON VESSEL (Primary Dx) Social History Tobacco Use Types Packs/Day Years Used Date Smoking Tobacco: Never Assessed Sex and Gender Information Value Date Recorded Sex Assigned at Not on file Legal Sex Male 3:56 AM BEAUTY SPECIALIST Gender Identity Not on file Sexual Orientation Not on file documented as of this encounter Plan of Treatment Not on file documented as of this encounter Visit Diagnoses Diagnosis Coronary atherosclerosis of [place] coronary artery- Primary documented in this encounter Care Teams Transfer Knitter Relationship Specialty Start Date End Date Peña Mancuso PCP - General 09/05/03 documented as of this encounter
--- OUTSIDE RECORDS SUMMARY | 2024-04-03 09:20 | XMS_ITS | Encounter Summary ---
Author Organization [facility] Address [address] [place] [address] Care Team Providers Care Rotoprinter Name Role Phone Peña Mancuso Primary Care Provider Unavailabl e Encounter Details Date Type Department Care Team (Latest Contact Info) Description 09/05/2003 Outpatient Historical [facility] CARD CONTRACTS MANAGER Rick Ordonez MD [address] [place] [address] CORONARY ATHEROSCLER UNSPEC VESSEL (Primary Dx) Social History Tobacco Use Types Packs/Day Years Used Date Smoking Tobacco: Never Assessed Sex and Gender Information Value Date Recorded Sex Assigned at Not on file Legal Sex Male 3:56 AM OVEN ATTENDANT Gender Identity Not on file Sexual Orientation Not on file documented as of this encounter Plan of Treatment Not on file documented as of this encounter Visit Diagnoses Diagnosis Coronary atherosclerosis of unspecified type of vessel, zuni or graft- Primary documented in this encounter Care Teams Rotoprinter Relationship Specialty Start Date End Date Peña Mancuso PCP - General 09/05/03 documented as of this encounter
--- OUTSIDE RECORDS SUMMARY | 2024-04-03 09:20 | XMS_ITS | Encounter Summary ---
Author Organization [facility] Address [address] [place] [address] Care Team Providers Care Production Coordinator Name Role Phone Peña Mancuso Primary Care Provider Unavailabl e Encounter Details Date Type Department Care Team (Late st Contact Info) Description 08/30/2003 Outpatient Historical [facility] Support Serv. (Adt Cardiology[facility]) [address] [place] [phone] Carmel Barillas MD Social History Tobacco Use Types Packs/Day Years Used Date Smoking Tobacco: Never Assessed Sex and Gender Information Value Date Recorded Sex Assigned at Not on file Legal Sex Male 3:56 AM DONOR RELATIONS ASSOCIATE Gender Identity Not on file Sexual Orientation Not on file documented as of this encounter Plan of Treatment Not on file documented as of this encounter Visit Diagnoses Not on filedocumented in this encounter Care Teams Production Coordinator Relationship Specialty Start Date End Date Peña Mancuso PCP - General 09/05/03 documented as of this encounter
--- OUTSIDE RECORDS SUMMARY | 2024-04-03 09:20 | XMS_ITS | Encounter Summary ---
Author Organization [facility] Address [address] [place] [address] Care Team Providers Care Ice Sculptor Name Role Phone Sumaya Bush PA-C Primary Care Provider [phone] Encounter Details Date Type Department Care Team (Late st Contact Info) Description 11/22/2023 Abstract [facility], [facility] [address] [place], [place] [phone] Favian Wright MA Social History Tobacco Use Types Packs/Day Years Used Date Smoking Tobacco: Former Cigarettes Smokeless Tobacco: Never Alcohol Use Standard Drinks/Week Comments Yes 0 (1 standard drink = 0.6 oz pur e alcohol) rare Sex and Gender Information Value Date Recorded Sex Assigned at Male 02/29/2024 9:18 AM PROGRAM DIRECTOR CABLE TELEVISION Legal Sex Male 7:58 PM CDT Gender Identity Not on file Sexual Orientation Not on file documented as of this encounter Plan of Treatment Upcoming Encounters Date Type Department Care Team (Late st Contact Info) Description 08/31/2024 12:15 PM CDT [facility] [address] [facility] [place] [place] [phone] Ivan Rodrigues MD [facility]. [facility] [address] [place] [address] 11/19/2024 10:00 AM CDT Appointment [facility] [address] [place], [place] [phone] Agustin Torres MD [facility] [address] [place] [address] documented as of this encounter Visit Diagnoses Not on filedocumented in this encounter Care Teams Ice Sculptor Relationship Specialty Start Date End Date Sumaya Bush PA-C [address] [place] [address] [address] [place] [address] PCP - General PHYSICIAN CLINICAL PROJECT COORDINATOR 11/22/23 documented as of this encounter
--- NOTE | 2024-04-03 11:00 | NEURO_ITS ---
Impression: # Complains of numbness of feet. Known diabetic. ? # Mild axonal neuropathy. ? # Mild neurogenic changes on needle/EMG exam. ? # Clinical correlation recommended. Nerve Conduction Studies Anti Sensory Summary Table ?Stim Site NR Peak (ms) P-T Amp (?V) Site1 Site2 Delta-P (ms) Dist (cm) Dex (m/s) Left Sup Fibular Anti Sensory (Ant Lat Mall) 14 cm ? 3.5 10.5 14 cm Ant Lat Mall 3.5 16.0 46 Right Sup Fibular Anti Sensory (Ant Lat Mall) 14 cm ? 3.8 5.2 14 cm Ant Lat Mall 3.8 16.0 42 Left Sural Anti Sensory (Lat Mall) Calf ? 3.7 13.4 Calf Lat Mall 3.7 16.0 43 Right Sural Anti Sensory (Lat Mall) Calf ? 3.4 11.9 Calf Lat Mall 3.4 16.0 47 Motor Summary Table ?Stim Site NR Onset (ms) O-P Amp (mV) Site1 Site2 Delta-0 (ms) Dist (cm) Dex (m/s) Left Peroneal Motor (Vastus Med) Ankle ? 4.1 2.5 Popit Ankle 9.1 42.0 46 Popit ? 13.2 2.4 Right Peroneal Motor (Vastus Med) Ankle ? 3.9 1.5 Popit Ankle 9.5 40.0 42 Popit ? 13.4 1.5 Left Tibial Motor (Abd Maloney Brev) Ankle ? 4.5 1.2 Knee Ankle 9.6 42.0 44 Knee ? 14.1 3.5 Right Tibial Motor (Abd Maloney Brev) Ankle ? 4.7 2.1 Knee Ankle 9.8 41.0 42 Knee ? 14.5 2.5 F Wave Studies ?NR F-Lat (ms) L-R F-Lat (ms) Left Peroneal (Mrkrs) (EDB) ? 57.51 Right Peroneal (Mrkrs) (EDB)??? DISPERSED RESPONSE NR Left Tibial (Mrkrs) (Abd Hallucis) ? 58.95 0.52 Right Tibial (Mrkrs) (Abd Hallucis) ? 58.44 0.52 EMG ?Side Muscle Nerve Root Ins Act Fibs Amp Dur Recrt Comment Right AntTibialis Dp Br Fibular L4-5 Nml Nml Nml Nml Nml Right Gastroc Tibial S1-2 Nml Nml Nml Nml Nml Right Fibularis Long Sup Br Fibular L5-S1 Nml Nml Nml Nml Nml Right Flex Dig Long Tibial L5-S2 Nml Nml Nml Nml Nml Right Ext Dig Brev Dp Br Fibular L5, S1 Nml Nml Decr >12ms +1 Right QuadratusFem QuadFemoris L4-5, S1 Nml Nml Nml Nml Nml Left AntTibialis Dp Br Fibular L4-5 Nml Nml Nml Nml Nml Left Gastroc Tibial S1-2 Nml Nml Nml Nml Nml Left Fibularis Long Sup Br Fibular L5-S1 Nml Nml Nml Nml Nml Left Flex Dig Long Tibial L5-S2 Nml Nml Nml Nml Nml Left Ext Dig Brev Dp Br Fibular L5, S1 Nml Nml Decr >12ms +1 Left QuadratusFem QuadFemoris L4-5, S1 Nml Nml Nml Nml Nml MTDD
== END 2024-04-03 09:13 | disposition home or self-care (01) ==
PROVIDERS: PCP Physician Assistant Medical; Visit Provider Physician Assistant Medical
DX: G62.9 Polyneuropathy, unspecified (principal); F32.9 Major depressive disorder, single episode, unspecified; F41.9 Anxiety disorder, unspecified; E78.2 Mixed hyperlipidemia; R73.9 Hyperglycemia, unspecified; D64.9 Anemia, unspecified; R53.83 Other fatigue; I12.9 Hypertensive chronic kidney disease with stage 1 through stage 4 chronic kidney disease, or unspecified chronic kidney disease; N18.30 Chronic kidney disease, stage 3 unspecified
CPT/HCPCS: 95886; 95910